=== PATIENT | male | born 1970 | race Caucasian/White ===

== ENCOUNTER → 2022-08-05 | Outpatient (CLI) | payer OTHER ==
[2022-08-05 08:45] LABS: BASOPHILS % (AUTO) 1 % (0-10); EOSINOPHILS # (AUTO) 0.2 10^3/uL (0.0-0.3); EOSINOPHILS % (AUTO) 3 % (0-10); HEMATOCRIT 46 % (40-54); HEMOGLOBIN 15.5 g/dL (13.3-17.7); LYMPHOCYTES # (AUTO) 1.8 10^3/uL (1.0-4.0); LYMPHOCYTES % (AUTO) 32 % (12-44); MEAN CORPUSCULAR HEMOGLOBIN 29 pg (25-34); MEAN CORPUSCULAR HGB CONC 33 g/dL (32-36); MEAN CORPUSCULAR VOLUME 88 fL (80-99); MEAN PLATELET VOLUME 9.6 fL (9.0-12.2); MONOCYTES # (AUTO) 0.6 10^3/uL (0.0-1.0); MONOCYTES % (AUTO) 10 % (0-12); NEUTROPHILS # (AUTO) 3.1 10^3/uL (1.8-7.8); NEUTROPHILS % (AUTO) 55 % (42-75); PLATELET COUNT 245 10^3/uL (130-400); WHITE BLOOD COUNT 5.7 10^3/uL (4.3-11.0)
[2022-08-05 09:08] LABS: ALBUMIN 4.5 GM/DL (3.2-4.5); BILIRUBIN,TOTAL 0.7 MG/DL (0.1-1.0); CALCIUM 9.7 MG/DL (8.5-10.1); CREATININE SERUM 1.06 MG/DL (0.60-1.30); MAGNESIUM 2.1 MG/DL (1.6-2.4); POTASSIUM 4.3 MMOL/L (3.6-5.0); TOTAL PROTEIN 7.1 GM/DL (6.4-8.2)
== END ==
LOC: LAB 08:10
PROVIDERS: ATTEND Family Medicine
DX: Z00.00 Encounter for general adult medical examination without abnormal findings (principal); E11.9 Type 2 diabetes mellitus without complications
CPT/HCPCS: 80053; 80061; 82043; 83036; 83735; 85025; G0103; 36415; 84153

== ENCOUNTER → 2023-01-12 | Outpatient (CLI) | payer BC, OTHER | LOC: ORTHO 15:30 | PROVIDERS: ATTEND Orthopaedic Surgery | DX: S83.005A Unspecified dislocation of left patella, initial encounter (principal) | CPT/HCPCS: 99203 ==

== ENCOUNTER → 2023-01-21 | Outpatient (CLI) | payer BC ==
--- NOTE | 2023-01-21 10:27 | Diagnostic Imaging Report ---
EXAMINATION: Magnetic resonance imaging of the left knee without intravenous contrast DATE: January 21, 2023. COMPARISON: Left knee radiographs January 08, 2023. INDICATION: 52-year-old male, fall from 6' with left knee injury 6 weeks ago. Left knee pain. TECHNIQUE: Multiplanar, multisequence non contrast enhanced MR imaging was accomplished. FINDINGS: MENISCI: There is signal in the body and posterior horn of the medial meniscus not meeting strict MRI criteria for diagnosis of tear. The lateral meniscus is intact. LIGAMENTS AND TENDONS: The anterior and posterior cruciate ligaments are intact. There is a tear of the meniscofemoral ligament near its femoral attachment site. The superficial component of the medial collateral ligament complex is intact. The iliotibial band, mid third lateral capsular ligament, fibular collateral ligament, biceps femoris tendon and conjoined tendon are intact. The quadriceps tendon and patella ligament are intact. JOINT: There are broad areas of full-thickness cartilage loss of the patella and femoral trochlea. The medial and lateral compartment cartilage appears intact. There is a trace to small knee joint effusion. There is no identified intra-articular body or prominent synovitis. BONE: There are benign subcortical cystic changes in the proximal tibia underlying the anterior cruciate ligament insertion. There is very low level edema-like signal in the proximal fibula and subjacent lateral tibial plateau without identified fracture line. These may reflect areas of bone contusion. BURSAE AND SOFT TISSUES: There is no Ramon's cyst. There is generalized soft tissue edema adjacent to the knee joint capsule. IMPRESSION: 1. Intact menisci and cruciate ligaments. 2. Tear of the meniscofemoral ligament. The superficial component of the medial collateral ligament complex is intact. Additional ligaments and tendons are intact. 3. Severe patellofemoral compartment arthritis with trace to small knee joint effusion. No identified intra-articular body or prominent synovitis. 4. Low level edema-like signal in the proximal fibula and lateral tibial plateau without visible fracture line which may reflect areas of bone contusion. Dictated by: Dictated on workstation # [id number]
== END ==
LOC: RAD 08:42
PROVIDERS: ATTEND Orthopaedic Surgery
DX: M17.12 Unilateral primary osteoarthritis, left knee (principal); S83.8X2A Sprain of other specified parts of left knee, initial encounter; X58.XXXA Exposure to other specified factors, initial encounter
CPT/HCPCS: 73721